=== PATIENT | male | born 1950 | race Caucasian/White ===

== ENCOUNTER 2017-05-31 10:26 | Inpatient (IN) | payer OTHER ==
[2017-05-31 10:32] VITALS: BMI 32.5
--- NOTE | 2017-05-31 10:44 | PDOC ---
Attending Attestation - Resident Resident Name: PedersonQue - ED Attending Attestation I have performed the following: I have examined & evaluated the patient, The case was reviewed & discussed with the resident, I agree w/resident's findings & plan, Exceptions are as noted - HPI HPI: 67 yo M no reported past medical history (has not seen a physician in years) presents with fatigue, weakness. He notes chest tightness, SOB, and leg pain on exertion. No recent trauma, no bleeding gums, no dark stools. Denies any rashes. No recent illness. - Physicial Exam PE: GENERAL: Awake, alert, and fully oriented, in no acute distress. Appears pale. HEAD: No signs of trauma EYES: PERRLA, EOMI, sclera anicteric, conjunctiva clear ENT: Auricles normal inspection, hearing grossly normal, nares patent, oropharynx clear without exudates. Moist mucosa NECK: Normal ROM, supple, no lymphadenopathy, JVD, or masses LUNGS: Breath sounds equal, clear to auscultation bilaterally. No wheezes, and no crackles HEART: Regular rate and rhythm, normal S1 and S2, no murmurs, rubs or gallops ABDOMEN: Soft, nontender, normoactive bowel sounds. No guarding, no rebound. No masses EXTREMITIES: Normal range of motion, no edema. No clubbing or cyanosis. No cords, erythema, or tenderness NEUROLOGICAL: Cranial nerves II through XII grossly intact. Normal speech, normal gait SKIN: Warm, Dry, normal turgor, no rashes or lesions noted. - Medical Decision Making Labs show pancytopenia, which is presumably new onset, as patient has not seen a doctor in "years". Will add anemia labs and plan for heme/onc and admission.
--- NOTE | 2017-05-31 10:52 | PDOC ---
History of Present Illness - General Chief Complaint: Weakness Stated Complaint: ABD PAIN, LETHARGIC Time Seen by Provider: 05/31/17 10:42 History Source: Patient Exam Limitations: No Limitations - History of Present Illness Initial Comments: 05/31/17 12:42 67yo with no pmh (hasn't seen his pcp in 4 years) presents with 3 weeks of generalized weakness, and on exertion: chest tightness leg pain and shortness of breath. Not on any medication. Never smoked, drinks 2 beers on the weekend, No nausea, vomiting, headache,palpitations, chest pain, rashes, hematomas, diarrhea, dysuria Past History - Past Medical History Allergies/Adverse Reactions: Allergies Allergy/AdvReac Type Severity Reaction Status Date / Time No Known Allergies Allergy Verified 05/31/17 10:32 Home Medications: Ambulatory Orders Ciprofloxacin [Cipro (Restricted To Id)] 500 mg PO BID #20 tablet 12/12/11 Naproxen [Naprosyn] 500 mg PO BID PRN #20 tablet 08/05/12 - Psycho/Social/Smoking Cessation Hx Anxiety: No Suicidal Ideation: No Smoking Status: No Smoking History: Never smoked Number of Cigarettes Smoked Daily: 0 Information on smoking cessation initiated: No Review of Systems - Review of Systems Constitutional: Yes: See HPI HEENTM: No: Symptoms Reported Respiratory: Yes: Shortness of Breath Cardiac (ROS): No: Symptoms Reported ABD/GI: No: Symptoms Reported : No: Symptoms Reported Musculoskeletal: No: Symptoms Reported Integumentary: No: Symptoms Reported Neurological: No: Symptoms reported *Physical Exam - Vital Signs Last Vital Signs Temp Pulse Resp BP Pulse Ox 97.8 F 82 18 161/63 100 05/31/17 10:28 05/31/17 10:28 05/31/17 10:28 05/31/17 10:28 05/31/17 10:28 - Physical Exam General Appearance: Yes: Nourished, Appropriately Dressed. No: Apparent Distress HEENT: positive: EOMI, ML Neck: positive: Trachea midline, Supple. negative: Tender Respiratory/Chest: positive: Lungs Clear, Normal Breath Sounds. negative: Chest Tender, Respiratory Distress Cardiovascular: positive: Regular Rhythm, Regular Rate, S1, S2 Gastrointestinal/Abdominal: positive: Normal Bowel Sounds, Soft. negative: Tender Extremity: positive: Normal Capillary Refill ED Treatment Course - LABORATORY CBC & Chemistry Diagram: 05/31/17 11:33 05/31/17 11:33 Medical Decision Making - Medical Decision Making 05/31/17 13:00 67m with no pmh presents to the ED with generalized weakness and muscle pain on exertion due to pancytopenia. Ordered extensive blood studies and paged Dr. Cowart, Heme/onc. Ordered 2 unites of packed red blood cells. 05/31/[address] Cowart 05/31/17 14:[address] Cowart who said he was coming down to see the patient. Talked to Dr. Sherwood who agree with admitting the patient Talked to patient's who mentioned that patient was seen 2 months ago for the same symptoms and evaluated at [facility] where he was found to have low cortisol levels. Never followed up out patient. Cotisol pm labs sent. *DC/Admit/Observation/Transfer Diagnosis at time of Disposition: Pancytopenia - Discharge Dispostion Admit: Yes - Referrals
[2017-05-31 11:48] LABS: BASOPHIL 0.5 % (0-2.0); EOSINOPHIL 3.8 % (0-4.5); MCH 30.2 pg (25.7-33.7); MEAN CELL VOLUME 94.2 fl (80-96); MEAN PLT VOLUME 10.2 fl (7.5-11.1); NEUTROPHILS 39.9 % (42.8-82.8); RDW 27.3 % (11.9-15.9); WHITE BLOOD COUNT 3.9 K/mm3 (4.0-10.0)
[2017-05-31 11:55] LABS: PLATELET COUNT 15 K/MM3 (134-434)
[2017-05-31 12:34] LABS: ALBUMIN 3.3 g/dl (3.4-5.0); ANION GAP 9 (8-16); BILIRUBIN,TOTAL 0.3 mg/dL (0.2-1.0); CALCIUM 8.6 mg/dL (8.5-10.1); CO2 24 mmol/L (21-32); GLUCOSE,RANDOM 112 mg/dL (74-106); SGOT/AST 15 U/L (15-37); SGPT/ALT 16 U/L (12-78); TOT PROT 6.4 g/dl (6.4-8.2)
[2017-05-31 12:35] LABS: ALK PHOS 77 U/L (45-117); CPK 139 IU/L (39-308); TROPONIN I < 0.02 ng/ml (0.00-0.05)
[2017-05-31 12:51] LABS: INR 1.07 (0.82-1.09); PROTHROMBIN TIME (PATIENT) 11.8 SEC (9.98-11.88)
[2017-05-31 12:53] LABS: ACTIVATED PTT 26.4 SECONDS (26.9-34.4)
[2017-05-31 12:56] LABS: ANISOCYTOSIS 2+; TEAR DROP CELLS FEW
--- NOTE | 2017-05-31 14:07 | EKG ---
Test Reason : Blood Pressure : / mmHG Vent. Rate : 081 BPM Atrial Rate : 081 BPM P-R Int : 186 ms QRS Dur : 086 ms QT Int : 400 ms P-R-T Axes : 062 065 037 degrees QTc Int : 464 ms NORMAL SINUS RHYTHM NONSPECIFIC ST ABNORMALITY ABNORMAL ECG NO PREVIOUS ECGS AVAILABLE Confirmed by RACHANA ZHENG MD ([id number]) on 05/31/2017 2:07:13 PM Referred By: Confirmed By:RACHANA ZHENG MD
[2017-05-31 14:30] LABS: FERRITIN 17.942 ng/ml (16.4-293.9)
[2017-05-31 18:10] LABS: URINE APPEARANCE CLEAR; URINE BILIRUBIN NEGATIVE (NEGATIVE); URINE BLOOD 2+ (NEGATIVE); URINE COLOR STRAW; URINE GLUCOSE (UA) NEGATIVE (NEGATIVE); URINE KETONE NEGATIVE (NEGATIVE); URINE LEUK ESTERASE NEGATIVE (NEGATIVE); URINE NITRITE NEGATIVE (NEGATIVE); URINE PROTEIN NEGATIVE (NEGATIVE); URINE UROBILINOGEN NEGATIVE mg/dL (0.2-1.0)
[2017-05-31 18:12] LABS: URINE MUCUS RARE; URINE RBC 5 /hpf (0-3); URINE WBC <1 /hpf (3-5)
--- NOTE | 2017-05-31 20:00 | HP ---
Admitting History and Physical - Primary Care Physician PCP: Joo Sherwood - Admission Chief Complaint: weakness and fatigue History of Present Illness: 67 yo M no reported past medical history (has not seen a physician in 4 years) presents with fatigue, weakness. chest tightness, SOB, and leg pain on exertion. no dark stools. Denies any rashes. No recent illness. - Smoking History Smoking history: Never smoked Aproximately how many cigarettes per day: 0 Home Medications - Allergies Allergies/Adverse Reactions: Allergies Allergy/AdvReac Type Severity Reaction Status Date / Time No Known Allergies Allergy Verified 05/31/17 10:32 - Home Medications Home Medications: Ambulatory Orders Ciprofloxacin [Cipro (Restricted To Id)] 500 mg PO BID #20 tablet 12/12/11 Naproxen [Naprosyn] 500 mg PO BID PRN #20 tablet 08/05/12 Physical Examination Vital Signs: Vital Signs Temperature 97.7 F 05/31/17 15:05 Pulse Rate 75 05/31/17 18:29 Respiratory Rate 20 05/31/17 18:29 Blood Pressure 149/73 05/31/17 18:29 O2 Sat by Pulse Oximetry (%) 96 05/31/17 18:29 Constitutional: Yes: No Distress HENT: Yes: Atraumatic Neck: Yes: Supple Cardiovascular: Yes: Regular Rate and Rhythm Respiratory: Yes: Rhonchi Gastrointestinal: Yes: Normal Bowel Sounds Extremities: Yes: WNL Neurological: Yes: Alert, Oriented Problem List - Problems (1) Pancytopenia Assessment/Plan: transfuse prbc but will wait for hematology fu labs id consult to r/o any infectious cause Code(s): D61.818 - OTHER PANCYTOPENIA Assessment/Plan Laboratory Tests 05/31/17 05/31/17 05/31/17 11:33 11:33 11:59 WBC 3.9 L RBC 1.70 L Hgb 5.1 L* Hct 16.0 L MCV 94.2 MCH 30.2 MCHC 32.0 RDW 27.3 H Plt Count 15 L* MPV 10.2 Neutrophils % 39.9 L Lymphocytes % 43.9 H Monocytes % 11.9 H Eosinophils % 3.8 Basophils % 0.5 Anisocytosis 2+ Macrocytosis 2+ Tear Drop Cells Few Retic Count INR PTT (Actin FS) Sodium 143 Potassium 4.1 Chloride 110 H Carbon Dioxide 24 Anion Gap 9 BUN 18 Creatinine 1.0 Creat Clearance w eGFR > 60 Random Glucose 112 H Calcium 8.6 Ferritin Total Bilirubin 0.3 AST 15 ALT 16 Alkaline Phosphatase 77 LD Total Creatine Kinase 139 Troponin I < 0.02 Total Protein 6.4 Albumin 3.3 L Urine Color Urine Appearance Urine pH Urine Protein Urine Glucose (UA) Urine Ketones Urine Blood Urine Nitrite Urine Bilirubin Urine Urobilinogen Ur Leukocyte Esterase Urine RBC Urine WBC Ur Epithelial Cells Urine Mucus Blood Type O POSITIVE Antibody Screen Negative Crossmatch 05/31/17 05/31/17 05/31/17 12:04 12:18 13:15 WBC RBC Hgb Hct MCV MCH MCHC RDW Plt Count MPV Neutrophils % Lymphocytes % Monocytes % Eosinophils % Basophils % Anisocytosis Macrocytosis Tear Drop Cells Retic Count 3.06 H INR 1.07 PTT (Actin FS) 26.4 L Sodium Potassium Chloride Carbon Dioxide Anion Gap BUN Creatinine Creat Clearance w eGFR Random Glucose Calcium Ferritin Total Bilirubin AST ALT Alkaline Phosphatase LD Total Creatine Kinase Troponin I Total Protein Albumin Urine Color Urine Appearance Urine pH Urine Protein Urine Glucose (UA) Urine Ketones Urine Blood Urine Nitrite Urine Bilirubin Urine Urobilinogen Ur Leukocyte Esterase Urine RBC Urine WBC Ur Epithelial Cells Urine Mucus Blood Type O POSITIVE Antibody Screen Crossmatch See Detail 05/31/17 05/31/17 13:15 17:45 WBC RBC Hgb Hct MCV MCH MCHC RDW Plt Count MPV Neutrophils % Lymphocytes % Monocytes % Eosinophils % Basophils % Anisocytosis Macrocytosis Tear Drop Cells Retic Count INR PTT (Actin FS) Sodium Potassium Chloride Carbon Dioxide Anion Gap BUN Creatinine Creat Clearance w eGFR Random Glucose Calcium Ferritin 17.942 Total Bilirubin AST ALT Alkaline Phosphatase LD Total 263 H Creatine Kinase Troponin I Total Protein Albumin Urine Color Straw Urine Appearance Clear Urine pH 6.0 Urine Protein Negative Urine Glucose (UA) Negative Urine Ketones Negative Urine Blood 2+ H Urine Nitrite Negative Urine Bilirubin Negative Urine Urobilinogen Negative Ur Leukocyte Esterase Negative Urine RBC 5 Urine WBC <1 Ur Epithelial Cells Rare Urine Mucus Rare Blood Type Antibody Screen Crossmatch Active Medications Generic Name Dose Route Start Last Admin Trade Name Freq PRN Reason Stop Dose Admin Acetaminophen 650 mg 05/31/17 20:04 Tylenol - PO Q6H PRN FEVER OR PAIN
[2017-05-31] MEDS ORDERED: ACETAMINOPHEN 325 MG TABLET (FP) PO PRN (20:04)
[2017-05-31 21:29] LABS: CPK 126 IU/L (39-308); TROPONIN I < 0.02 ng/ml (0.00-0.05)
--- NOTE | 2017-05-31 21:45 | CONSULT ---
Consult Consult Specialty:: Hematology-Oncology Referred by:: Dr. Be Sherwood Reason for Consultation:: pancytopenia - History of Present Illness Chief Complaint: Fatigue, weakness,HEREDIA History of Present Illness: 67 y/o H male with no signif. PMH presents with an approx 2 week hx of progressive fatigue /weakness/ SOB on exertion/vague discomfort in chest ; inER he was found to have H/H 5.1/16% MCV94 ,plates 15K , WBC 3.9 w 40% neutros, 44% lymphs,12%monos, 4%eos ; CMP pertinent for normal LFT's , creat, calcium; T.prot 6.4 and alb 3.3; UA w 2+ blood ; pt he occ has minimal gingival bleeding w brushing, +easy bruising but denies melena/BRBPR/epistaxis/gross hematuria ; he denies fevers/chills/sweats ; has good appetite , no weight loss; of note, his occupation is jewelry designer , works w gold/silver and has been exposed to a variety of chemicals/solvents over the years, according to pt.He was transfused and further labs show nl INR/PTT ;Ferritin 17.9, antibody sreen neg, LDH 263. 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 No: Ascites, Cancer, Constipation, Crohn's Disease, Diverticulitis, Diverticulosis, Esophageal Varices, Gastritis, GERD, GI Bleed, Hiatal Hernia, Inflamatory Bowel Disease, Irritable Bowel Disease, Pancreatitis, Peptic Ulcer Disease, Ulcerative Colitis Hepatobiliary: No: Cirrhosis, Cholelithiasis, Cholecystitis, Choledocholithiasis , Hepatitis A, Hepatitis B, Hepatitis C, Other Renal/: No: Renal Failure, Renal Inusuff, BPH, Cancer, Hematuria, Hemodialysis , Neurogenic Bladder, Renal Calculi, UTI, Other Heme/Onc: No: Anemia, B12 Deficiency, Bleeding Disorder, Cancer, Current Chemotherapy, Current Radiation Therapy, Hemochromatosis, Hypercoaguable State, Myeloproliferative Synd, Sickle Cell Disease, Sickle Cell Trait, Thrombocytopenia, Other Infectious Disease: No: AIDS, C-Diff, Herpes Zoster, HIV, MRSA, STD's, Tuberculosis, VREF, Other Psych: No: Addictions, Anxiety, Bipolar, Depression, Panic, Psychosis, Schizophrenia, Other Musculoskeletal: Yes: Other (chronic neck pain due to occupation) Rheumatology: No: Fibromyalgia, Gout, Lupus, Rheumatoid Arthritis, Sarcoidosis, Vasculitis, Other ENT: No: Allergic Rhinitis, Sinusitis, Other Endocrine: No: Tryon's Disease, Vivienne's Disease, Diabetes Insipidus, Diabetes Mellitus, Hyperparathyroidism, Hyperthyroidism, Hypothyroidism, Osteopenia, SIADH, Other - Past Surgical History Past Surgical History: Yes: None - Smoking History Smoking history: Never smoked Aproximately how many cigarettes per day: 0 Home Medications - Allergies Allergies/Adverse Reactions: Allergies Allergy/AdvReac Type Severity Reaction Status Date / Time No Known Allergies Allergy Verified 05/31/17 10:32 - Home Medications Home Medications: Ambulatory Orders Ciprofloxacin [Cipro (Restricted To Id)] 500 mg PO BID #20 tablet 12/12/11 Naproxen [Naprosyn] 500 mg PO BID PRN #20 tablet 08/05/12 Home Medications (free text): pt says he takes omega 3 and occ tylenol Family Disease History - Family Disease History Family History: Denies (denies blood and cancer problems) Family Disease History: Other: Sister (transfused for anemia) Review of Systems - Review of Systems Constitutional: reports: Weakness Eyes: denies: No Symptoms, Blind Spots, Blurred Vision, Double Vision, Eye Pain , Floaters, Photophobia, Recent Change in Vision, Other HENT: reports: Gingival Bleeding Neck: reports: Stiffness. denies: No Symptoms, Decreased ROM, Lumps, Pain on Movement, Swollen Glands, Tenderness, Other Cardiovascular: denies: No Symptoms, Chest Pain, Edema, Palpitations, Shortness of Breath, Other Respiratory: reports: SOB on Exertion. denies: No Symptoms, Cough, Exercise Intolerance, Hemoptysis, Orthopnea, PND, Snoring, SOB, Wheezing, Other Gastrointestinal: denies: No Symptoms, Abdominal Pain, Bloating, Constipation, Diarrhea, Dysphagia, Indigestion, Melena, Nausea, Rectal Bleeding, Vomiting, Vomiting Blood, Other Genitourinary: denies: No Symptoms, Burning, Discharge, Dysuria, Flank Pain, Frequency, Hematuria, Incontinence, Lesions, Menses, Pain, Testicular Mass, Testicular Pain, Testicular Swelling, Urgency, Vaginal Bleeding, Other Musculoskeletal: reports: Other (chronic neck pains) Integumentary: denies: No Symptoms, Blister, Bruising, Change in Color, Eczema, Erythema, Incision, Lesions, Lump, Pallor, Pruritis, Rash, Wound, Other Neurological: denies: No Symptoms, Change in LOC, Change in Speech, Confusion, Dizziness, Headache, Incoordination, Numbness, Parasthesia, Pre-Existing Deficit , Seizure, Syncope, Tremors, Unsteady Gait, Weakness, Other Endocrine: denies: No Symptoms, Excessive Sweating, Flushing, Increased Hunger, Increased Thirst, Intolerance to Cold, Intolerance to Heat, Unexplained Weight Gain, Unexplained Weight Loss, Other Hematology/Lymphatic: reports: Easily Bruised Psychiatric: denies: No Symptoms, Altered Sleep Pattern, Anxiety, Depression, Hallucinations, Panic, Paranoia, Suicidal, Other Physical Exam Vital Signs: Vital Signs Temperature 98 F 05/31/17 18:35 Pulse Rate 79 05/31/17 18:35 Respiratory Rate 20 05/31/17 18:35 Blood Pressure 154/85 05/31/17 18:35 O2 Sat by Pulse Oximetry (%) 98 05/31/17 18:35 Constitutional: Yes: Well Nourished, No Distress, Calm, Obese Eyes: Yes: Other (conj pale) HENT: Yes: WNL Neck: Yes: WNL Cardiovascular: Yes: WNL Respiratory: Yes: WNL Gastrointestinal: Yes: WNL, Normal Bowel Sounds, Soft, Abdomen, Obese Breast(s): Yes: WNL Musculoskeletal: No: WNL, Back Pain, Joint Stiffness, Joint Swelling, Muscle Pain, Muscle Weakness, Other Extremities: No: WNL, Amputation, Calf Tenderness, Cold, Cool, Cyanosis, Deformity, Delayed Capillary Refill, Erythema, External Rotation, Internal Rotation, Pallor, Shortened, Other Edema: No Integumentary: Yes: Bruising Neurological: Yes: WNL, Alert, Oriented Psychiatric: Yes: WNL, Alert, Oriented Assessment/Plan pt w pancytopenia ; he has a profound relatively hypoproliferative (retic 3) normochromic anemia , severe thrombocytopenia, mild leukopenia , diff not particularly unusual . There are no overt signs of bleeding , except for microscopic hematuria. Review of smear showed no schistocytes or microspherocytes, no hypochromia ; there are tear drop cells and nucleated RBC' s present ; plates low slightly large; wbc's not unusual other than for a few lymphs which appear hairy, slight increase in monos /eos ; few hyperseg. polys ; no classical leukemic cells seen. The differential is broad but need to r/o marrow infiltrative diseases such as aleukemic leukemia , plasma cell dyscrasias and lymphoprolif diseases ; MDS also high on diff. list or other marrow suppressive states , eg virus ; doubt hemolytic states ,TTP , etc since LDH and bili nl . Suggest Tx w PC's to hgb 8 , Tx platelets if < 10K or bleeding ; will do bone marrow in a.m.; Please obtain US abd. to assess liver spleen.
[2017-06-01 06:07] LABS: HAPTOGLOBIN 118 mg/dL (34-200); TRANSFERRIN 319 mg/dL (200-370)
[2017-06-01 08:39] LABS: BASOPHIL 0.2 % (0-2.0); MCH 29.7 pg (25.7-33.7); MCHC 33.6 g/dl (32.0-35.9); MEAN CELL VOLUME 88.5 fl (80-96); MEAN PLT VOLUME 11.3 fl (7.5-11.1); NEUTROPHILS 36.7 % (42.8-82.8)
[2017-06-01 08:50] LABS: PLATELET COUNT 10 K/MM3 (134-434)
[2017-06-01 09:09] LABS: THYROID STIMULATING HORMONE 2.24 uIU/ml (0.358-3.74)
[2017-06-01 09:24] LABS: ANION GAP 5 (8-16); CALCIUM 7.9 mg/dL (8.5-10.1); CO2 25 mmol/L (21-32); CREATININE 0.9 mg/dL (0.7-1.3); GLUCOSE,RANDOM 95 mg/dL (74-106); SGOT/AST 13 U/L (15-37); SGPT/ALT 16 U/L (12-78)
[2017-06-01 09:27] LABS: ALK PHOS 73 U/L (45-117)
[2017-06-01] MEDS ORDERED: LIDOCAINE HCL 1% PRESERVATIVE FREE - 30ML VIAL IJ ONE (09:30)
--- NOTE | 2017-06-01 10:20 | PN ---
Progress Note, Physician Chief Complaint: fatigue History of Present Illness: 67 y/o male w pancytopenia s/p Tx PC ; plates 10K and hgb 7.1 today ; pt w less fatigue; + easy bruising ; a bone marrow asp/bx perfomed today on R post iliac crest, no complications; BM sent for flow/genetics - Current Medication List Current Medications: Active Medications Acetaminophen (Tylenol -) 650 mg PO Q6H PRN PRN Reason: FEVER OR PAIN - Objective Vital Signs: Vital Signs Temperature 99.1 F 06/01/17 06:00 Pulse Rate 69 06/01/17 06:00 Respiratory Rate 20 06/01/17 06:00 Blood Pressure 136/70 06/01/17 06:00 O2 Sat by Pulse Oximetry (%) 98 06/01/17 01:31 Constitutional: Yes: Well Nourished, No Distress Eyes: Yes: WNL HENT: Yes: WNL, Atraumatic, Normocephalic Neck: Yes: WNL, Supple, Trachea Midline Cardiovascular: Yes: WNL, Regular Rate and Rhythm Respiratory: Yes: WNL, Regular, CTA Bilaterally Gastrointestinal: Yes: WNL, Normal Bowel Sounds, Soft, Abdomen, Obese ...Rectal Exam: Yes: WNL Genitourinary: Yes: WNL Musculoskeletal: Yes: WNL Extremities: Yes: WNL Edema: No Integumentary: Yes: WNL Neurological: Yes: WNL, Alert, Oriented Labs: CBC, BMP 06/01/17 07:15 06/01/17 09:01 INR, PTT INR 1.07 (0.82-1.09) 05/31/17 12:18 Assessment/Plan pt w severe anemia , haptoglobin nl, no signs of hemolysis ;severe thrombocytopenia ; suggest Tx plates today and 1 more unit PC ; US abdomen ; can Tx today and d/c and pt has to come to my office tomorrow afternoon 19 Ivis panchal; differential still fairly wide r/o MDS , marrow infiltrative diseases.Pt feels better ; can repeat CBC /plates after Tx today and can d/c tonight if counts come up ; keep pt if plates <10K
--- NOTE | 2017-06-01 15:38 | CONSULT ---
Consult Consult Specialty:: infectious diseases Reason for Consultation:: weakness,tiredeness fatigue - History of Present Illness Chief Complaint: weakness History of Present Illness: 67 yo M no reported past medical history presents with fatigue, weakness. He notes chest tightness, SOB, and leg pain on exertion. No recent trauma, no bleeding gums, no dark stools. Denies any rashes. No recent illness. 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 No: Ascites, Cancer, Constipation, Crohn's Disease, Diverticulitis, Diverticulosis, Esophageal Varices, Gastritis, GERD, GI Bleed, Hiatal Hernia, Inflamatory Bowel Disease, Irritable Bowel Disease, Pancreatitis, Peptic Ulcer Disease, Ulcerative Colitis Hepatobiliary: No: Cirrhosis, Cholelithiasis, Cholecystitis, Choledocholithiasis , Hepatitis A, Hepatitis B, Hepatitis C, Other Renal/: No: Renal Failure, Renal Inusuff, BPH, Cancer, Hematuria, Hemodialysis , Neurogenic Bladder, Renal Calculi, UTI, Other Infectious Disease: No: AIDS, C-Diff, Herpes Zoster, HIV, MRSA, STD's, Tuberculosis, VREF, Other Psych: No: Addictions, Anxiety, Bipolar, Depression, Panic, Psychosis, Schizophrenia, Other Musculoskeletal: Yes: Other (chronic neck pain due to occupation) Rheumatology: No: Fibromyalgia, Gout, Lupus, Rheumatoid Arthritis, Sarcoidosis, Vasculitis, Other ENT: No: Allergic Rhinitis, Sinusitis, Other Endocrine: No: Gunnison's Disease, Vivienne's Disease, Diabetes Insipidus, Diabetes Mellitus, Hyperparathyroidism, Hyperthyroidism, Hypothyroidism, Osteopenia, SIADH, Other - Past Surgical History Past Surgical History: Yes: None - Smoking History Smoking history: Never smoked Aproximately how many cigarettes per day: 0 Home Medications - Allergies Allergies/Adverse Reactions: Allergies Allergy/AdvReac Type Severity Reaction Status Date / Time No Known Allergies Allergy Verified 05/31/17 10:32 - Home Medications Home Medications: Ambulatory Orders Ciprofloxacin [Cipro (Restricted To Id)] 500 mg PO BID #20 tablet 12/12/11 Naproxen [Naprosyn] 500 mg PO BID PRN #20 tablet 08/05/12 Family Disease History - Family Disease History Family Disease History: Other: Sister (transfused for anemia) Review of Systems - Review of Systems Constitutional: reports: Weakness Eyes: reports: No Symptoms HENT: reports: No Symptoms Neck: reports: No Symptoms Cardiovascular: reports: No Symptoms Respiratory: reports: No Symptoms Gastrointestinal: reports: No Symptoms Genitourinary: reports: No Symptoms Musculoskeletal: reports: Muscle Weakness Integumentary: reports: No Symptoms Neurological: reports: No Symptoms Endocrine: reports: No Symptoms Hematology/Lymphatic: reports: No Symptoms Psychiatric: reports: No Symptoms Physical Exam Vital Signs: Vital Signs Temperature 99.1 F 06/01/17 06:00 Pulse Rate 69 06/01/17 06:00 Respiratory Rate 18 06/01/17 10:00 Blood Pressure 136/70 06/01/17 06:00 O2 Sat by Pulse Oximetry (%) 98 06/01/17 10:00 Constitutional: Yes: Well Nourished, No Distress, Calm Eyes: Yes: Conjunctiva Clear HENT: Yes: Atraumatic Neck: Yes: Supple Cardiovascular: Yes: Regular Rate and Rhythm Respiratory: Yes: Regular, CTA Bilaterally Gastrointestinal: Yes: Normal Bowel Sounds, Soft Musculoskeletal: Yes: WNL Extremities: Yes: WNL Integumentary: Yes: WNL Labs: CBC, BMP 06/01/17 07:15 06/01/17 09:01 Imaging - Results Chest X-ray: Report Reviewed, Image Reviewed Assessment/Plan patient was evaluated in [place] couple of months back for the same type of symptoms,nothing was found pancytopenia plan will not start on any abx at this time wbc has come up to normal bone marroe bx done rest as per primary
--- NOTE | 2017-06-01 15:56 | DS ---
Physical Examination Vital Signs: Vital Signs Temperature 97.9 F 06/01/17 14:43 Pulse Rate 75 06/01/17 14:43 Respiratory Rate 18 06/01/17 14:43 Blood Pressure 141/69 06/01/17 14:43 O2 Sat by Pulse Oximetry (%) 98 06/01/17 10:00 Constitutional: Yes: No Distress HENT: Yes: Atraumatic Neck: Yes: Supple Cardiovascular: Yes: Regular Rate and Rhythm Respiratory: Yes: CTA Bilaterally Gastrointestinal: Yes: Normal Bowel Sounds Extremities: Yes: WNL Neurological: Yes: Alert, Oriented Labs: CBC, BMP 06/01/17 07:15 06/01/17 09:01 Discharge Summary Reason For Visit: PANCYTOPENIA Current Active Problems Pancytopenia (Acute) - Instructions Referrals: Joo Sherwood MD [Staff Physician] - Adam Vance MD [Primary Care Provider] - - Home Medications Comprehensive Discharge Medication List: Ambulatory Orders Ciprofloxacin [Cipro (Restricted To Id)] 500 mg PO BID #20 tablet 12/12/11 Naproxen [Naprosyn] 500 mg PO BID PRN #20 tablet 08/05/12 dc home fu hematology in office
--- NOTE | 2017-06-01 19:02 | CON.CARD ---
Consult - Past Medical History Gastrointestinal: Yes: Hemorrhoids, Other (no hx endoscopies) Musculoskeletal: Yes: Other (chronic neck pain due to occupation) - Past Surgical History Past Surgical History: Yes: None - Smoking History Smoking history: Never smoked Aproximately how many cigarettes per day: 0 Home Medications - Allergies Allergies/Adverse Reactions: Allergies Allergy/AdvReac Type Severity Reaction Status Date / Time No Known Allergies Allergy Verified 05/31/17 10:32 - Home Medications Home Medications: Ambulatory Orders Ciprofloxacin [Cipro (Restricted To Id)] 500 mg PO BID #20 tablet 12/12/11 Naproxen [Naprosyn] 500 mg PO BID PRN #20 tablet 08/05/12 Family Disease History - Family Disease History Family Disease History: Other: Sister (transfused for anemia) Vital Signs: Vital Signs Temperature 97.9 F 06/01/17 14:43 Pulse Rate 75 06/01/17 14:43 Respiratory Rate 18 06/01/17 14:43 Blood Pressure 141/69 06/01/17 14:43 O2 Sat by Pulse Oximetry (%) 98 06/01/17 10:00 - Other Data Labs, Other Data: CBC, BMP 06/01/17 07:15 06/01/17 09:01 INR, PTT INR 1.07 (0.82-1.09) 05/31/17 12:18 Troponin, BNP 05/31/17 20:20 Troponin I < 0.02 Troponin, BNP 05/31/17 20:20 Troponin I < 0.02
[2017-06-01 20:38] LABS: MCH 30.5 pg (25.7-33.7); MCHC 34.6 g/dl (32.0-35.9); MEAN CELL VOLUME 88.1 fl (80-96); MEAN PLT VOLUME 7.5 fl (7.5-11.1); PLATELET COUNT 67 K/MM3 (134-434); RDW 21.1 % (11.9-15.9); WHITE BLOOD COUNT 4.9 K/mm3 (4.0-10.0)
[2017-06-01 21:09] VITALS: BP 143/73; PULSE 69; TEMP 99.2
[2017-06-01 21:10] LABS: CPK 157 IU/L (39-308); TROPONIN I < 0.02 ng/ml (0.00-0.05)
[2017-06-02 06:06] LABS: SERUM IRON 364 ug/dL (38-169); TOTAL IRON BINDING CAPACITY < 381 ug/dL (250-450); UIBC < 17 ug/dL (111-343)
--- NOTE | 2017-06-03 10:11 | PATH ---
Surgical Pathology Report Patient Name: ALLIE ENGLISH [facility]. Rec. #: [id number] /Age/Gender: 1950 (Age: 67) / M Account: [id number] Location: [address] [place] [address] Taken: 06/01/2017 Received: 06/01/2017 Reported: 06/03/2017 Physicians: Artem Kebede MD Specimen(s) Received A: BONE MARROW BIOPSY B: BONE MARROW CLOT C: BONE MARROW ASPIRATION SMEARS D: BONE MARROW BLOOD Clinical History Pancytopenia Final Diagnosis BONE MARROW, ASPIRATION WITH CLOT AND BIOPSY: OVERALL NORMOCELLULAR BONE MARROW FOR THE PATIENT'S AGE (APPROXIMATELY 30%), WITH TRILINEAGE MATURATION, MILD DYSERYTHROPOIESIS, AND DECREASED MEGAKARYOCYTES WITH PERIPHERAL THROMBOCYTOPENIA. NO INCREASE IN BLASTS, OVERT DYSPLASTIC FEATURES, OR LYMPHOPROLIFERATIVE DISORDER IDENTIFIED. NO METASTATIC CARCINOMA OR GRANULOMAS IDENTIFIED. Comment: Results of a complete blood count show a decreased hemoglobin of 5.1 g/dL, decreased hematocrit of 16.0%, decreased white blood count of 3.9 k/ul, and markedly decreased platelet count of 15 k/ul. The red cell indices are within normal limits with the exception of RDW, which is increased at 27.3%. Other pertinent laboratory findings include increased serum iron with decreased total iron binding capacity and increased iron saturation, normal ferritin and transferrin, and decreased total protein and albumin. Review of the aspirate smears show numerous particles of hematopoietic bone marrow. A differential count reveals 24% erythroid precursors, 62% myeloid cells, and 14% lymphocytes. Erythroid maturation shows slight delayed nuclear maturation. Myeloid maturation is electrical superintendent and complete. A decreased number of megakaryocytes is noted. An iron stain reveals the presence of normal storage iron. Sideroblasts are present in slightly increased percentage (40%), but no ringed or abnormal forms are identified. Review of core biopsy reveals scant hematopoietic tissue. The bony trabeculae are unremarkable. Iron stain is noncontributory. Reticulin stain shows no increased fibrosis. Review of the clot section shows multiple particles of overall normocellular bone marrow for the patient's age (approximately 30%). There is an overall normal erythroid to myeloid ratio. No tumor is identified. An iron stain is noncontributory. A reticulin stain shows no increased fibrosis. Flow Cytometry performed and interpreted at [place], [place] ([id number]) shows the following: Interpretation: There is no evidence for an increased blast population. There is no evidence for a lymphoproliferative disorder. Mild phenotypic variants of myeloid elements, see comment. Polytypic B-lymphocytosis. Comment: The findings are nonspecific, and may be associated with myelodysplastic or reactive processes. Please correlate with the bone marrow findings. Hematologic FISH Report performed and interpreted at [facility] in [place], [place] ([id number]) shows the following. Interpretation: No evidence of deletion 5q or monosomy 5 is present. No evidence of deletion 7q or monosomy 7 is present. No evidence of trisomy 8 (+8) is present. No evidence of deletion 13q14 is present. No evidence of a rearrangement of 11q23. No evidence of a deletion of the p53 (17p13) locus. No evidence of deletion 20q12 is present. Comments: The study is negative for many of the most common recurrent genetic abnormalities in Myelodysplastic Syndrome. Correlation with pending cytogenetics ([id number]) is recommended. The overall findings are nonspecific, and the possibility of an evolving myelodysplastic syndrome cannot be completely excluded. The decreased number of megakaryocytes identified argues against peripheral destruction of platelets. The presence of normocytic anemia with increased iron saturation and decreased serum protein may indicate an element of anemia of chronic disease. Recommend correlation with clinical findings and followup as clinically indicated. Cytogenetics is pending, and a report will follow. Electronically Signed Bertin Welsh M.D. Gross Description A. Received in formalin, labeled with the patient's name and indicated on the requisition to be a bone marrow biopsy, is a 0.6 cm in length x 0.1 cm in diameter reynoso, cylindrical portion of bone. The specimen is submitted in toto in one cassette, following decalcification. B. Received in formalin with, labeled with the patient's name and indicated on the requisition to be bone marrow clot, is a 2.6 x 2.3 x 0.4 cm aggregate of red brown blood clot. The specimen is submitted in toto in one cassette. C. Received are 4 bone marrow aspiration smear slides. D. Received are 2 green top tubes and 1 lavender top tube of bone marrow blood which are sent to [facility]. 06/01/201706/01/2017
== END 2017-06-01 21:21 | disposition home or self-care (01) | DRG 810 ==
LOC: JER 10:26 → JERBED 15:42 → J5S 20:04
PROVIDERS: ADMIT Internal Medicine; ATTEND Internal Medicine
PROC: 07DR3ZX Extraction of Iliac Bone Marrow, Percutaneous Approach, Diagnostic (ICD-10-PCS; principal; 2017-06-01)
DX: D61.818 Other pancytopenia (principal)
CPT/HCPCS: 36415; 36430; 71010-TC; 76700-TC; 80053; 81003; 81015; 82553; 82728; 83010; 83036; 83540; 83550; 83615; 84443; 84466; 84484; 85025; 85027; 85044; 85610; 85730; 86850; 86900; 86901; 86922; 88300-TC; 88305-TC; 88311-TC; 88313-TC; 93005; 93010; 93306-TC; 99285-25; P9034; P9038; P9058

== ENCOUNTER 2017-08-24 18:44 | Emergency (ER) | payer OTHER ==
[2017-08-24 19:06] VITALS: BP 150/68; PULSE 83; TEMP 98.3; BMI 34.7
--- NOTE | 2017-08-24 20:41 | PDOC ---
History of Present Illness - History of Present Illness Initial Comments: 08/24/17 22:26 The patient is a 67 year old male, with a significant past medical history of recently diagnosed leukemia, who presents to the emergency department with easy bleeding of the gingiva. Patient is complaining that his gums are bleeding when he brushes his teeth. He also states he easy to bruise. He denies any complaint of melena. He denies any recent fevers, chills, headache or dizziness. He denies any recent nausea, vomit, diarrhea or constipation. He denies any recent chest pain or shortness of breath. He denies any recent dysuria, frequency, urgency or hematuria. Allergies: NKA Past surgical history: None reported. Social History: Nonsmoker. Denies EtOH use and recreational drug use. Primary Care Physician: Rajiv Medina. <Kecia Meza - Last Filed: 08/24/17 22:52> <Lora Leary - Last Filed: 08/24/17 23:39> - General Chief Complaint: Weakness Stated Complaint: BLEEDING FROM MOUTH Time Seen by Provider: 08/24/17 20:39 Past History <Kecia Meza - Last Filed: 08/24/17 22:52> - Past Medical History Cancer: Yes COPD: No - Suicide/Smoking/Psychosocial Hx Smoking Status: No Smoking History: Never smoked Number of Cigarettes Smoked Daily: 0 Hx Alcohol Use: No Drug/Substance Use Hx: No <Lora Leary - Last Filed: 08/24/17 23:39> - Past Medical History Allergies/Adverse Reactions: Allergies Allergy/AdvReac Type Severity Reaction Status Date / Time No Known Allergies Allergy Verified 08/24/17 18:58 Home Medications: Ambulatory Orders Ciprofloxacin [Cipro (Restricted To Id)] 500 mg PO BID #20 tablet 12/12/11 Acyclovir [Zovirax -] 400 mg PO BID 08/24/17 Fluconazole 200 mg PO DAILY 08/24/17 Review of Systems - Review of Systems Able to Perform ROS?: Yes (poor historian) Comments:: 08/24/17 22:27 CONSTITUTIONAL: Absent: fever, chills, diaphoresis, generalized weakness, malaise, loss of appetite HEENT: Present: bleeding of gums Absent: rhinorrhea, nasal congestion, throat pain, throat swelling, difficulty swallowing, mouth swelling, ear pain, eye pain, visual Changes CARDIOVASCULAR: Absent: chest pain, syncope, palpitations, irregular heart rate, lightheadedness , peripheral edema RESPIRATORY: Absent: cough, shortness of breath, dyspnea with exertion, orthopnea, wheezing, stridor, hemoptysis GASTROINTESTINAL: Absent: abdominal pain, abdominal distension, nausea, vomiting, diarrhea, constipation, melena, hematochezia GENITOURINARY: Absent: dysuria, frequency, urgency, hesitancy, hematuria, flank pain, genital pain MUSCULOSKELETAL: Absent: myalgia, arthralgia, joint swelling SKIN: Absent: rash, itching, pallor HEMATOLOGIC/IMMUNOLOGIC: Present: easy bleeding, easy bruising. Absent: lymphadenopathy, frequent infections ENDOCRINE: Absent: unexplained weight gain, unexplained weight loss, heat intolerance, cold intolerance NEUROLOGIC: Absent: headache, focal weakness or paresthesias, dizziness, unsteady gait, seizure, mental status changes, bladder or bowel incontinence PSYCHIATRIC: Absent: anxiety, depression, suicidal or homicidal ideation, hallucinations. <Kecia Meza - Last Filed: 08/24/17 22:52> *Physical Exam - Vital Signs Last Vital Signs Temp Pulse Resp BP Pulse Ox 98.3 F 83 20 150/68 97 08/24/17 18:58 08/24/17 18:58 08/24/17 18:58 08/24/17 18:58 08/24/17 21:46 - Physical Exam Comments: 08/24/17 22:28 GENERAL: Well developed, well nourished. Awake and alert. No acute distress. HEENT: Normocephalic, atraumatic. PERRLA, EOMI. No conjunctival pallor. Sclera are non- icteric. Moist mucous membranes. Oropharynx is clear. NECK: Supple. Full ROM. No JVD. Carotid pulses 2+ and symmetric, without bruits. No thyromegaly. No lymphadenopathy. CARDIOVASCULAR: Regular rate and rhythm. No murmurs, rubs, or gallops. Distal pulses are 2+ and symmetric. PULMONARY: No evidence of respiratory distress. Lungs clear to auscultation bilaterally. No wheezing, rales or rhonchi. ABDOMINAL: Soft. Non-tender. Non-distended. No rebound or guarding. No organomegaly. Normoactive bowel sounds. MUSCULOSKELETAL Normal range of motion at all joints. No bony deformities or tenderness. No CVA tenderness. EXTREMITIES: No cyanosis. No clubbing. No edema. No calf tenderness. SKIN: +Pallor, Warm and dry. Normal capillary refill. No rashes. No jaundice. NEUROLOGICAL: Alert, awake, appropriate. Cranial nerves 2-12 intact. No deficits to light touch and temperature in face, upper extremities and lower extremities. No motor deficits in the in face, upper extremities and lower extremities. Normoreflexic in the upper and lower extremities. Normal speech. Toes are down-going bilaterally. Gait is normal without ataxia. PSYCHIATRIC: Cooperative. Good eye contact. Appropriate mood and affect. <Kecia Meza - Last Filed: 08/24/17 22:52> - Vital Signs Last Vital Signs Temp Pulse Resp BP Pulse Ox 98.3 F 83 20 150/68 97 08/24/17 18:58 08/24/17 18:58 08/24/17 18:58 08/24/17 18:58 08/24/17 18:58 <Lora Leary - Last Filed: 08/24/17 23:39> ED Treatment Course - LABORATORY CBC & Chemistry Diagram: 08/24/17 21:40 08/24/17 21:40 - ADDITIONAL ORDERS Additional order review: 08/24/17 21:40 RBC 2.58 L MCV 93.9 MCHC 34.4 RDW 19.7 H Neutrophils % No Result Required. Lymphocytes % No Result Required. <Kecia Meza - Last Filed: 08/24/17 22:52> - LABORATORY CBC & Chemistry Diagram: 08/24/17 21:40 08/24/17 21:40 <Lora Leary - Last Filed: 08/24/17 23:39> Medical Decision Making - Medical Decision Making 08/24/17 22:42 67-year-old male who is going to start chemotherapy on August 30 presents because of some gingival bleeding. He actually seen in this emergency department in May for similar complaint that prompted his hematological workup. I did call the [facility] with Dr. felipe fried who did not know the patient personally and recommended that he follow up with Dr. Lisa Francois in the morning. The patient had with him. Lab results from the [facility] that showed hemoglobin of 8.3 and hematocrit of 25.9 and platelets of 15,000. These tests were just one yesterday. Patient does not have a fever, he does not have vomiting or diarrhea, chest pain or shortness breath. -plat 47,000 hbg 8 Impression pancytopenia, gingival bleeding. Plan patient to follow-up with his cancer doctor tomorrow 08/24/17 23:38 <Lora Leary - Last Filed: 08/24/17 23:39> *DC/Admit/Observation/Transfer - Attestations Scribe Attestion: 08/24/17 22:29 Documentation prepared by Kecia Meza, acting as medical sales specialist for Lora Leary MD. <Kecia Meza - Last Filed: 08/24/17 22:52> <Lora Leary - Last Filed: 08/24/17 23:39> Diagnosis at time of Disposition: Gingival bleeding, Pancytopenia - Discharge Dispostion Disposition: HOME Condition at time of disposition: Good - Referrals Referrals: Adam Vance MD [Primary Care Provider] - - Patient Instructions Printed Discharge Instructions: DI for Pancytopenia Additional Instructions: PLEASE FOLLOW UP WITH THE DOCTORS AT [facility]
[2017-08-24 21:51] LABS: MCH 32.3 pg (25.7-33.7); MCHC 34.4 g/dl (32.0-35.9); MEAN CELL VOLUME 93.9 fl (80-96); RDW 19.7 % (11.9-15.9); WHITE BLOOD COUNT 2.6 K/mm3 (4.0-10.0)
[2017-08-24 22:24] LABS: INR 0.99 (0.82-1.09); PROTHROMBIN TIME (PATIENT) 11.2 SEC (9.98-11.88)
[2017-08-24 22:40] LABS: ALBUMIN 3.6 g/dl (3.4-5.0); ANION GAP 9 (8-16); BILIRUBIN,TOTAL 0.2 mg/dL (0.2-1.0); CALCIUM 8.1 mg/dL (8.5-10.1); CO2 26 mmol/L (21-32); GLUCOSE,RANDOM 147 mg/dL (74-106); SGOT/AST 21 U/L (15-37); SGPT/ALT 20 U/L (12-78); TOT PROT 6.6 g/dl (6.4-8.2)
[2017-08-24 22:41] LABS: ALK PHOS 73 U/L (45-117)
[2017-08-24 22:54] LABS: MEAN PLT VOLUME 8.1 fl (7.5-11.1); PLATELET COMMENT2 NO CLOTTING DETECTED; PLATELET COUNT 47 K/MM3 (134-434); PLATELET ESTIMATE MARKEDLY DECREASED (NORMAL)
[2017-08-24 22:59] LABS: ANISOCYTOSIS 1+; HYPOCHROMIA 1+
== END 2017-08-24 23:17 | disposition home or self-care (01) ==
LOC: JER 18:44
DX: K06.8 Other specified disorders of gingiva and edentulous alveolar ridge (principal)
CPT/HCPCS: 36415; 80053; 85025; 85610; 99284-25

== ENCOUNTER 2019-12-21 09:49 | Inpatient (IN) | payer OTHER ==
[2019-12-21] MEDS ORDERED: SODIUM CHLORIDE 1,000 ML IV STA (10:26)
--- NOTE | 2019-12-21 10:26 | PDOC ---
History of Present Illness - General Chief Complaint: Revisit, Lab Variance Stated Complaint: WEAK Time Seen by Provider: 12/21/19 10:07 History Source: Patient Exam Limitations: Language Barrier - History of Present Illness Initial Comments: Hx limited bc patient speaks Persian - [employer] interpreter [id number] used for translation Raymon Rios is a 69 yo M w a hx of leukemia who presents to the [facility] er with 1 week of weakness, diffuse body aches including neck and back pain, recently received abnormal lab values at the clinic, and now presents because he doesn't have any strength. He denies recent fevers or infections. Other than generalized weakness and body aches the patient reports minimal symptoms. He endorses multiple weeks of mild bloody discharge from his rectum which he believes is secondary to hemorrhoids. Allergies: NKA Past surgical history: None reported. Social History: Nonsmoker. Denies EtOH use and recreational drug use. Primary Care Physician: Rajiv Medina. Oncologist: "Dr. Gallardo" Past History - Past Medical History Allergies/Adverse Reactions: Allergies Allergy/AdvReac Type Severity Reaction Status Date / Time No Known Allergies Allergy Verified 12/21/19 09:58 Home Medications: Ambulatory Orders Acyclovir [Zovirax -] 400 mg PO BID 08/24/17 Azacitidine [Vidaza Subq] mg SQ ASDIR 12/21/19 Ondansetron [Zofran -] 4 mg SL TID PRN 12/21/19 Cancer: Yes COPD: No - Psycho Social/Smoking Cessation Hx Smoking Status: No Smoking History: Smoker current status UNK Number of Cigarettes Smoked Daily: 0 Hx Alcohol Use: No Drug/Substance Use Hx: No Review of Systems - Review of Systems Able to Perform ROS?: Yes Comments:: CONSTITUTIONAL: Present: Fatigue Absent: fever, no chills EYES: Absent: visual changes ENT: Absent: ear pain, no sore throat CARDIOVASCULAR: Absent: chest pain, no palpitations RESPIRATORY: Absent: cough, no SOB GI: Absent: abdominal pain, no nausea, no vomiting, no constipation, no diarrhea GENITOURINARY: Absent: dysuria, no frequency, no hematuria MUSKULOSKELETAL: Present: back pain, myalgia Absent: no arthralgia SKIN: Absent: rash NEURO: Absent: headache *Physical Exam - Vital Signs Last Vital Signs Temp Pulse Resp BP Pulse Ox 97.8 F 100 H 18 136/80 99 12/21/19 10:03 12/21/19 10:03 12/21/19 10:03 12/21/19 10:03 12/21/19 10:03 - Physical Exam GENERAL: Patient appears pale and weak HEENT: Normocephalic, atraumatic. PERRL, EOM intact. CARDIOVASCULAR: Normal S1, S2. Regular rate and rhythm. PULMONARY: No evidence of respiratory distress. Lungs clear to auscultation bilaterally. No wheezing, rales or rhonchi. ABDOMEN: There is lower left abdominal TTP. Soft, non-distended. EXTREMITIES: Normal ROM in all four extremities. No gross deformities. SKIN: Warm, dry. No rash NEUROLOGICAL: No focal neurological deficits. ED Treatment Course - LABORATORY CBC & Chemistry Diagram: 12/21/19 11:09 12/21/19 11:09 Medical Decision Making - Medical Decision Making Raymon Rios is a 69 yo M w a hx of leukemia who presents to the [facility] er with 1 week of weakness, diffuse body aches including neck and back pain, recently received abnormal lab values at the clinic, and now presents because he doesn't have any strength. He denies recent fevers or infections. Other than generalized weakness and body aches the patient reports minimal symptoms. He endorses multiple weeks of mild bloody discharge from his rectum which he believes is secondary to hemorrhoids. Vital Signs Temp Pulse Resp BP Pulse Ox 97.8 F 100 H 18 136/80 99 12/21/19 10:03 12/21/19 10:03 12/21/19 10:03 12/21/19 10:03 12/21/19 10:03 DDx IBNLT: Anemia, myelodysplasia, leukemia, blast crisis, tumor lysis syndrome , electrolyte/metabolic disturbance Plan: Labs, Bedside US, Iv hydration, EKG, re-assess. Bedside US: No AAA on bedside US Labs: Hb below 7 - will transfuse one unit and admit to hospital to receive heme/onc consults Discharge - Discharge Information Problems reviewed: Yes Clinical Impression/Diagnosis: Anemia requiring transfusions, Pancytopenia Condition: Stable - Admission Yes - Follow up/Referral Referrals: ON STAFF,NOT [Primary Care Provider] - - Patient Discharge Instructions - Post Discharge Activity
[2019-12-21 11:36] LABS: BASO % 0.3 % (0-2.0); EOS % 2.3 % (0-4.5); HEMATOCRIT 20.6 % (35.4-49); LYMPH % 26.2 % (8-40); MCH 23.8 pg (25.7-33.7); MCHC 30.5 g/dl (32.0-35.9); MEAN PLT VOLUME 9.4 fl (7.5-11.1); MONO % 8.7 % (3.8-10.2); NEUT % 62.5 % (42.8-82.8); PLATELET COUNT 29 K/MM3 (134-434); RBC 2.65 M/mm3 (4.00-5.60); RDW 28.8 % (11.9-15.9); RETICULOCYTES 3.46 % (0.5-1.5); WHITE BLOOD COUNT 2.8 K/mm3 (4.0-10.0)
[2019-12-21 11:49] LABS: INR 1.09 (0.83-1.09); PROTHROMBIN TIME (PATIENT) 12.9 SEC (9.7-13.0)
[2019-12-21 11:51] LABS: ACTIVATED PTT 22.5 SECONDS (25.2-36.5)
[2019-12-21 11:57] LABS: HEMOGLOBIN 6.3 GM/dL (11.7-16.9)
[2019-12-21 12:07] LABS: ALBUMIN 2.8 g/dl (3.4-5.0); BILIRUBIN,TOTAL 0.3 mg/dL (0.2-1); BLOOD UREA NITROGEN 16.2 mg/dL (7-18); CALCIUM 7.9 mg/dL (8.5-10.1); MAGNESIUM 2.1 mg/dL (1.8-2.4); PHOSPHOROUS 2.6 mg/dL (2.5-4.9); POTASSIUM 3.8 mmol/L (3.5-5.1); TOT PROT 5.9 g/dl (6.4-8.2)
--- NOTE | 2019-12-21 12:21 | PDOC ---
Documentation entered by Gely Hitchcock SCRIBE, acting as scribe for Shonda Acosta DO. Shonda Acosta DO: This documentation has been prepared by the Naldo lyons Xhesika, SCRIBE, under my direction and personally reviewed by me in its entirety. I confirm that the documentation accurately reflects all work, treatment, procedures, and medical decision making performed by me. Attending Attestation - Resident Resident Name: Cy Guallpa - ED Attending Attestation I have performed the following: I have examined & evaluated the patient, The case was reviewed & discussed with the resident, I agree w/resident's findings & plan, Exceptions are as noted - HPI HPI: 12/21/19 12:04 The patient is a 69 year old male, with a significant past medical history of anemia and leukemia (follows with oncologist but does not recall name), who presents to the emergency department with 1 week of weakness, night sweats, diffuse body aches (including neck, upper back and chest wall pain). Pt reports several weeks of rectal bleeding. The patient denies chest pain, shortness of breath, headache and dizziness. Denies fever, chills, cough, nausea, vomiting, diarrhea and constipation. Denies dysuria, frequency, urgency and hematuria. Allergies: NKA Social History: Nonsmoker. Denies EtOH use and recreational drug use. Primary Care Physician: Rajiv Medina. - Physicial Exam PE: 12/21/19 12:07 GENERAL: Awake, alert, and oriented, in no acute distress. +pale appearing upon arrival. HEAD: No signs of trauma EYES: +pale conjunctiva. ENT: Auricles normal inspection, hearing grossly normal, nares patent, oropharynx clear without exudates. +dry mucosa NECK: Normal ROM, supple, no lymphadenopathy, JVD, or masses LUNGS: Breath sounds equal, clear to auscultation bilaterally. No wheezes, and no crackles HEART: Regular rate and rhythm, normal S1 and S2, no murmurs, rubs or gallops ABDOMEN: +mild LLQ tenderness. Soft, normoactive bowel sounds. No guarding, no rebound. No masses EXTREMITIES: +reproducible upper back tenderness. No midline or c-spine tenderness. No chest wall tenderness. Normal range of motion, no edema.. No clubbing or cyanosis. No cords, erythema. NEUROLOGICAL: Cranial nerves II through XII grossly intact. Normal speech, normal gait SKIN: Warm, Dry, normal turgor, no rashes or lesions no - Medical Decision Making 12/21/19 12:14 I, Dr. Shonda Acosta, DO, attest that this document has been prepared under my direction and personally reviewed by me in its entirety. I further attest, that it accurately reflects all work, treatment, procedures and medical decision -making performed by me. a/p: 69yo male with anemia and generalized weakness -pt with body cramps -body aches, night sweats, but no fevers -hx of seeing oncology in the past and being worked up for pancytopenia, but unsure who is oncologist -pt c/o upper back pain, cp -pt states rectal bleeding -small amount of LLQ pain -states hemorrhoids -will send labs, cxr, ct abd/pelvis -pt is pale and will most likely need transfusion -no active bleeding at this time -pt with sob on exertion and generalized weakness 12/21/19 12:18 pt pancytopenia -blood transfusion ordered 12/21/19 12:18 cxr clear 12/21/19 12:32 labs reviewed elevated retic elevated ld pt will need admission 12/21/19 12:[address] renato celestin, call placed 12/21/19 13:21 stool for heme + resident discussed the case and the patient is admitted for further eval pt updated on labs and results Heart Score/ECG Review - ECG Intrepretation Comment:: 12/21/19 12:19 sinus at 78, nl axis, nl interval, st depression v3-v5, no t wave changes
[2019-12-21 13:06] LABS: ANISOCYTOSIS 3+; MACROCYTOSIS 1+; OVALOCYTE 2+; PLATELET ESTIMATE DECREASED; TEAR DROP CELLS 1+
[2019-12-21] MEDS ORDERED: ONDANSETRON 4 MG TABLET PO PRN (13:20)
[2019-12-21 15:31] VITALS: BMI 34.2
--- NOTE | 2019-12-21 16:11 | EKG ---
Test Reason : Blood Pressure : / mmHG Vent. Rate : 078 BPM Atrial Rate : 078 BPM P-R Int : 156 ms QRS Dur : 094 ms QT Int : 386 ms P-R-T Axes : 058 055 032 degrees QTc Int : 440 ms POOR DATA QUALITY, INTERPRETATION MAY BE ADVERSELY AFFECTED NORMAL SINUS RHYTHM NONSPECIFIC ST ABNORMALITY ABNORMAL ECG WHEN COMPARED WITH ECG OF 31-MAY-2017 11:43, NO SIGNIFICANT CHANGE WAS FOUND Confirmed by RICHARD LIEBERMAN, CLEOPATRA ([id number]) on 12/21/2019 4:10:51 PM Referred By: Confirmed By:CLEOPATRA RAMOS MD
[2019-12-21] MEDS: ACYCLOVIR 400 MG TABLET PO SCH (22:38)
[2019-12-22] MEDS ORDERED: FLU VACCINE QUAD 60 MCG/0.5 ML (MDV 19-20) IM ONE (10:00)
[2019-12-22] MEDS ORDERED: PNEUMOC 13-VAL CONJ-DIP CRM/PF 0.5 ML DISP.SYRIN IM ONE (10:00)
[2019-12-22] MEDS: ACYCLOVIR 400 MG TABLET PO SCH ×2 (10:07→21:21)
--- NOTE | 2019-12-22 10:17 | HP ---
Admitting History and Physical - Primary Care Physician PCP: Adam Vance - Admission History of Present Illness: Pt seen/ examined chart is reviewed awake/ comfortable got transfusion History Source: Patient, Medical Record Limitations to Obtaining History: Clinical Condition - Past Medical History Gastrointestinal: Yes: Hemorrhoids, Other (no hx endoscopies) Heme/Onc: Yes: Anemia (MDS), Myeloproliferative Synd Musculoskeletal: Yes: Other (chronic neck pain due to occupation) - Past Surgical History Past Surgical History: Yes: None - Smoking History Smoking history: Smoker current status UNK Have you smoked in the past 12 months: No Aproximately how many cigarettes per day: 0 - Alcohol/Substance Use Hx Alcohol Use: No Home Medications - Allergies Allergies/Adverse Reactions: Allergies Allergy/AdvReac Type Severity Reaction Status Date / Time No Known Allergies Allergy Verified 12/21/19 09:58 - Home Medications Home Medications: Ambulatory Orders Acyclovir [Zovirax -] 400 mg PO BID 08/24/17 Azacitidine [Vidaza Subq] mg SQ ASDIR 12/21/19 Ondansetron [Zofran -] 4 mg SL TID PRN 12/21/19 Review of Systems - Review of Systems Constitutional: reports: Weakness Eyes: reports: No Symptoms Neck: reports: No Symptoms Cardiovascular: reports: No Symptoms Respiratory: reports: No Symptoms Gastrointestinal: reports: Rectal Bleeding Neurological: reports: No Symptoms Hematology/Lymphatic: reports: Excessive Bleeding Psychiatric: reports: No Symptoms Physical Examination Vital Signs: Vital Signs Temperature 97.9 F 12/22/19 06:00 Pulse Rate 72 12/22/19 06:00 Respiratory Rate 18 12/22/19 06:00 Blood Pressure 111/58 L 12/22/19 06:00 O2 Sat by Pulse Oximetry (%) 100 12/21/19 21:00 Constitutional: Yes: No Distress, Calm Eyes: Yes: Conjunctiva Clear, Other (Conjuctiva pale) Neck: Yes: Supple Cardiovascular: Yes: Regular Rate and Rhythm Respiratory: Yes: CTA Bilaterally Gastrointestinal: Yes: Soft Edema: No Neurological: Yes: Alert Psychiatric: Yes: Alert Labs: CBC, BMP 12/21/19 11:09 12/21/19 11:09 Imaging - Results Chest X-ray: Report Reviewed EKG: Report Reviewed Problem List - Problems (1) Rectal bleed Assessment/Plan: Low platlets will transfuse Problems reviewed: Yes Code(s): K62.5 - HEMORRHAGE OF ANUS AND RECTUM (2) MDS (myelodysplastic syndrome) Assessment/Plan: Oncology consult Problems reviewed: Yes Code(s): D46.9 - MYELODYSPLASTIC SYNDROME, UNSPECIFIED (3) Pancytopenia Assessment/Plan: Transfused monitor Code(s): D61.818 - OTHER PANCYTOPENIA
[2019-12-22 11:33] LABS: BASO % 0.1 % (0-2.0); EOS % 5.3 % (0-4.5); HEMATOCRIT 23.9 % (35.4-49); HEMOGLOBIN 7.5 GM/dL (11.7-16.9); LYMPH % 36.5 % (8-40); MCH 24.8 pg (25.7-33.7); MCHC 31.4 g/dl (32.0-35.9); MEAN CELL VOLUME 78.9 fl (80-96); MEAN PLT VOLUME 9.7 fl (7.5-11.1); MONO % 4.6 % (3.8-10.2); NEUT % 53.5 % (42.8-82.8); RBC 3.02 M/mm3 (4.00-5.60); RDW 26.8 % (11.9-15.9); WHITE BLOOD COUNT 2.3 K/mm3 (4.0-10.0)
[2019-12-22 11:38] LABS: PLATELET COUNT 27 K/MM3 (134-434)
[2019-12-22 12:08] LABS: BILIRUBIN,TOTAL 0.7 mg/dL (0.2-1); BLOOD UREA NITROGEN 15.6 mg/dL (7-18); CALCIUM 8.4 mg/dL (8.5-10.1); CREATININE 0.9 mg/dL (0.55-1.3); POTASSIUM 3.9 mmol/L (3.5-5.1); TOT PROT 6.1 g/dl (6.4-8.2)
[2019-12-22 12:38] LABS: ANISOCYTOSIS 3+; MACROCYTOSIS 0; PLATELET ESTIMATE DECREASED; TEAR DROP CELLS 1+
--- NOTE | 2019-12-22 17:53 | CONSULT ---
Consult Consult Specialty:: hematology-oncology Referred by:: Dr. Stoner Reason for Consultation:: pancytopenia - History of Present Illness Chief Complaint: weakness and fatigue History of Present Illness: 4 year history of pancytopenia Followed at [facility] by Dr. Hawley. Has required transfusions in past. Receiving azacytidine suggesting diagnosis of myelodysplasia - History Source History Provided By: Patient Limitations to Obtaining History: Language Barrier - Past Medical History Gastrointestinal: Yes: Hemorrhoids, Other (no hx endoscopies) Infectious Disease: Yes: Other (on valtrex prophylaxis) Musculoskeletal: Yes: Other (chronic neck pain due to occupation) - Past Surgical History Past Surgical History: Yes: None - Alcohol/Substance Use Hx Alcohol Use: No - Smoking History Smoking history: Smoker current status UNK Have you smoked in the past 12 months: No Aproximately how many cigarettes per day: 0 - Social History Usual Living Arrangement: With Spouse Place of : Other ([place]) Home Medications - Allergies Allergies/Adverse Reactions: Allergies Allergy/AdvReac Type Severity Reaction Status Date / Time No Known Allergies Allergy Verified 12/21/19 09:58 - Home Medications Home Medications: Ambulatory Orders Acyclovir [Zovirax -] 400 mg PO BID 08/24/17 Azacitidine [Vidaza Subq] mg SQ ASDIR 12/21/19 Ondansetron [Zofran -] 4 mg SL TID PRN 12/21/19 Review of Systems - Review of Systems Constitutional: reports: Loss of Appetite, Malaise, Weakness Eyes: denies: Blurred Vision, Double Vision HENT: denies: Difficult Swallowing, Epistaxis, Throat Pain Neck: denies: Stiffness, Swollen Glands Cardiovascular: denies: Chest Pain, Palpitations, Shortness of Breath Respiratory: reports: Cough, SOB on Exertion Gastrointestinal: denies: Nausea, Vomiting Genitourinary: denies: Dysuria, Frequency, Hematuria Musculoskeletal: reports: Joint Pain, Muscle Pain, Muscle Weakness Neurological: denies: Change in Speech, Dizziness, Headache Endocrine: reports: No Symptoms Psychiatric: reports: No Symptoms Physical Exam Vital Signs: Vital Signs Temperature 98.1 F 12/22/19 12:56 Pulse Rate 78 12/22/19 12:56 Respiratory Rate 18 12/22/19 12:56 Blood Pressure 138/69 12/22/19 12:56 O2 Sat by Pulse Oximetry (%) 100 12/22/19 09:00 Constitutional: Yes: No Distress Eyes: Yes: PERRL. No: Diplopia, Ptosis, Sclera Icterus HENT: Yes: Atraumatic, Normocephalic. No: Hoarseness, Thrush Neck: Yes: Supple, Trachea Midline. No: Tenderness, Thyromegaly Cardiovascular: Yes: Regular Rate and Rhythm Respiratory: Yes: Regular Gastrointestinal: Yes: Normal Bowel Sounds, Soft. No: Hepatomegaly, Splenomegaly Musculoskeletal: Yes: Muscle Pain, Muscle Weakness Extremities: No: Calf Tenderness, Cyanosis Edema: No Integumentary: Yes: WNL Neurological: Yes: WNL ...Motor Strength: WNL Psychiatric: Yes: WNL Labs: CBC, BMP 12/22/19 11:05 12/22/19 11:05 Problem List - Problems (1) Pancytopenia Assessment/Plan: Pancytopenia followed at [facility] with Dr. Lisa Hawley On azacytidine . Has required transfusions in past Presented with weakness and fatigue . Presumptive diagnosis MDS - details unclear. On azacytidine and valtrex prophylaxis. Would transfuse packed cells. Check stool guaics. Obtain details from Dr. Hawley and refer back to her care Code(s): D61.818 - OTHER PANCYTOPENIA
[2019-12-23 06:01] VITALS: BP 121/56; PULSE 66; TEMP 97.6
[2019-12-23 07:33] LABS: BASO % 0.2 % (0-2.0); HEMATOCRIT 26.6 % (35.4-49); HEMOGLOBIN 8.6 GM/dL (11.7-16.9); LYMPH % 32.9 % (8-40); MCH 25.8 pg (25.7-33.7); MCHC 32.3 g/dl (32.0-35.9); MEAN CELL VOLUME 79.8 fl (80-96); MEAN PLT VOLUME 9.1 fl (7.5-11.1); MONO % 7.3 % (3.8-10.2); NEUT % 53.6 % (42.8-82.8); RBC 3.33 M/mm3 (4.00-5.60); WHITE BLOOD COUNT 2.3 K/mm3 (4.0-10.0)
[2019-12-23 07:53] LABS: PLATELET COUNT 36 K/MM3 (134-434)
[2019-12-23 07:54] LABS: ALBUMIN 2.8 g/dl (3.4-5.0); BILIRUBIN,TOTAL 0.6 mg/dL (0.2-1); BLOOD UREA NITROGEN 14.4 mg/dL (7-18); CREATININE 0.9 mg/dL (0.55-1.3); POTASSIUM 3.8 mmol/L (3.5-5.1); TOT PROT 5.9 g/dl (6.4-8.2); URIC ACID 5.2 mg/dL (2.6-7.2)
[2019-12-23] MEDS: ACYCLOVIR 400 MG TABLET PO SCH (10:30)
--- NOTE | 2019-12-23 13:46 | DS ---
Physical Examination Vital Signs: Vital Signs Temperature 97.6 F 12/23/19 05:59 Pulse Rate 66 12/23/19 05:59 Respiratory Rate 20 12/23/19 05:59 Blood Pressure 121/56 L 12/23/19 05:59 O2 Sat by Pulse Oximetry (%) 100 12/22/19 21:00 Findings/Remarks: Sitting in chair feels well No complains Wants to go home today No bleeding got platlets yesterday says has appointment with his Oncologist on Wednesday -- [facility] Constitutional: Yes: No Distress, Calm Eyes: Yes: Conjunctiva Clear Neck: Yes: Supple Cardiovascular: Yes: Regular Rate and Rhythm Respiratory: Yes: CTA Bilaterally Gastrointestinal: Yes: Soft Edema: No Neurological: Yes: Alert Psychiatric: Yes: Alert Labs: CBC, BMP 12/23/19 07:00 12/23/19 07:00 Discharge Summary Problems reviewed: Yes Reason For Visit: TRANSFUSION DEPENDENT ANEMIA; PANCYTOPENIA Current Active Problems Anemia requiring transfusions (Acute) MDS (myelodysplastic syndrome) (Acute) Pancytopenia (Acute) Rectal bleed (Acute) Hospital Course: Transfused - PRbcs and Platlets Stable d/c home Pt advised to return if bleeding devolps Pt to follow with his Oncologist next weeks Meds reconcilled Condition: Stable - Instructions Referrals: ON STAFF,NOT [Primary Care Provider] - Disposition: HOME - Home Medications Comprehensive Discharge Medication List: Ambulatory Orders Acyclovir [Zovirax -] 400 mg PO BID 08/24/17 Azacitidine [Vidaza Subq] mg SQ ASDIR 12/21/19 Ondansetron [Zofran -] 4 mg SL TID PRN 12/21/19
--- NOTE | 2019-12-23 14:05 | PN ---
Progress Note, Physician History of Present Illness: Denies pain, no bleeding. Wants to go home. - Current Medication List Current Medications: Active Medications Acyclovir (Zovirax -) 400 mg PO BID KAMI Last Admin: 12/23/19 10:30 Dose: 400 mg Ondansetron HCl (Zofran -) 4 mg PO TID PRN PRN Reason: NAUSEA - Objective Vital Signs: Vital Signs Temperature 97.6 F 12/23/19 05:59 Pulse Rate 66 12/23/19 05:59 Respiratory Rate 12/23/19 05:59 Blood Pressure 121/56 L 12/23/19 05:59 O2 Sat by Pulse Oximetry (%) 100 12/22/19 21:00 Constitutional: Yes: No Distress Eyes: Yes: Conjunctiva Clear Cardiovascular: Yes: Regular Rate and Rhythm Respiratory: Yes: CTA Bilaterally Gastrointestinal: Yes: Soft Edema: No Labs: CBC, BMP 12/23/19 07:00 12/23/19 07:00 INR, PTT INR 1.09 (0.83-1.09) 12/21/19 11:09 Assessment/Plan 69M with pancytopenia followed at [facility] with Dr. Lisa Ram On azacytidine . Has required transfusions in past Presented with weakness and fatigue . Presumptive diagnosis MDS - details unclear. On azacytidine and valtrex prophylaxis. Good response to PRBC Hgb 8.6 today. Plt 36. Obtain details from Dr. Hawley and refer back to her care
== END 2019-12-23 14:33 | disposition home or self-care (01) | DRG 812 ==
LOC: JER 09:49 → JERBED 12:06 → J7W 15:14
PROVIDERS: ADMIT Internal Medicine; ATTEND Internal Medicine
PROC: 30233N1 Transfusion of Nonautologous Red Blood Cells into Peripheral Vein, Percutaneous Approach (ICD-10-PCS; principal; 2019-12-22)
PROC: 30233R1 Transfusion of Nonautologous Platelets into Peripheral Vein, Percutaneous Approach (ICD-10-PCS; 2019-12-22)
DX: D46.9 Myelodysplastic syndrome, unspecified (principal); D61.818 Other pancytopenia; K62.5 Hemorrhage of anus and rectum
CPT/HCPCS: 36415; 36430; 36511; 71045-TC-FY; 80053; 82272; 82550; 83615; 83735; 84100; 84484; 84550; 85025; 85044; 85610; 85730; 86850; 86900; 86901; 86922; 90670; 93005; 93010; 99285-25; G0008; G0009; J7030; P9034; P9038; P9058; Q2036